=== PATIENT | male | born 1985 | race Caucasian/White ===

== ENCOUNTER 2017-06-11 01:03 | Emergency (ER) | payer SELFPAY ==
[2017-06-11 01:21] VITALS: TEMP 97.7
[2017-06-11] MEDS ORDERED: Aspirin 325 mg EC Tablets PO STA (01:40)
[2017-06-11] MEDS ORDERED: Aspirin 325 mg EC Tablets PO ONE (02:06)
[2017-06-11 03:07] LABS: CHLORIDE 102 mmol/L (98-107)
[2017-06-11 03:08] LABS: POTASSIUM 3.8 mmol/L (3.6-5.2); SODIUM 140 mmol/L (132-148)
[2017-06-11 03:10] LABS: ALB/GLOB RATIO 1.1 (1.0-2.1); CARBON DIOXIDE 28 mmol/L (22-30); CHOLESTEROL 148 mg/dL (0-199); GFR AFRICAN-AMERICAN > 60; TOTAL PROTEIN 8.1 g/dL (6.3-8.3)
--- NOTE | 2017-06-11 03:10 | C.PDOC ---
History Of Present Illness 31 y/o male c/o worsening chest pain for a few hours. Chest pain is described as intermittent, left sided pressure stating "it feels like it's screwing into his chest that moves up and down the left side". Patient notes he has been having chest pain since he was a little kid, but with no diagnosis. Patient does not remember seeing a casing tester. Patient has a questionable hx of HTN and high cholesterol and a pmhx of migraines, kidney stones, and lithotripsy without meds. Patient denies palpitations, SOB, diaphoresis, or abdominal pain. No rash. Time Seen by Provider: 06/11/17 01:28 Chief Complaint (Nursing): Chest Pain History Per: Patient History/Exam Limitations: no limitations Onset/Duration Of Symptoms: Hrs, Intermittent Episodes Current Symptoms Are (Timing): Still Present Severity: Mild Quality: Pressure Recent travel outside of the [place]: No Additional History Per: Patient Past Medical History Reviewed: Historical Data, Nursing Documentation, Vital Signs Vital Signs: Last Vital Signs Temp 97.7 F 06/11/17 01:16 Pulse 89 06/11/17 06:17 Resp 16 06/11/17 06:17 BP 139/86 06/11/17 06:17 Pulse Ox 98 06/11/17 07:14 - Medical History PMH: Anxiety, Asthma ( A CHILD), HTN, Hypercholesterolemia, Migraine Denies: Chronic Kidney Disease - [facility] Procedures INJECT/INFUSE NEC (07/07/14) Family History: States: Unknown Family Hx - Social History Hx Alcohol Use: Yes Hx Substance Use: No Review Of Systems Except As Marked, All Systems Reviewed And Found Negative. Constitutional: Negative for: Sweats Cardiovascular: Positive for: Chest Pain. Negative for: Palpitations, Light Headedness Respiratory: Negative for: Shortness of Breath Gastrointestinal: Negative for: Abdominal Pain Skin: Negative for: Rash Physical Exam - Physical Exam Appears: Non-toxic, No Acute Distress Skin: Warm, Dry, No Rash Head: Atraumatic, Normacephalic Eye(s): bilateral: Normal Inspection Chest: Symmetrical Cardiovascular: Rhythm Regular, No Murmur Respiratory: Normal Breath Sounds, No Rales, No Rhonchi, No Wheezing Gastrointestinal/Abdominal: Soft, No Tenderness Back: No CVA Tenderness Neurological/Psych: Oriented x3 ED Course And Treatment - Laboratory Results Result Diagrams: 06/11/17 02:57 06/11/17 02:57 O2 Sat by Pulse Oximetry: 98 (RA) Pulse Ox Interpretation: Normal Medical Decision Making Medical Decision Making: Plans: * Fentanyl * youth nutritional monitor * Aspirin * Blood labs * IV fluids * EKG * CXR 01:13. EKG: NOrmal sinus 73. J point ST elevation at I, AV l, V2, V3, V4, V5, V6. T wave inversion in a III and AV F. 01:17. Repeat EKG: J Point in V2 resolved. J point elevation at V2, V3, V4, V5, V6. NO T wave inversion lead II, III, and AV F. 06:30. Repeat EKG: normal sinus rate 70. J point elevated in V3, v4, v5, v6. Second troponin in progress. pt asymptomatic. trop neg x 2. ekg seems consistent with pericarditis. pt given naprosyn and clinic follow yup. Disposition Counseled Patient/Family Regarding: Studies Performed, Diagnosis, Need For Followup - Disposition Referrals: [facility] [Outside] Disposition: HOME/ ROUTINE Disposition Time: 07:11 Condition: STABLE Additional Instructions: follow up with clinic Prescriptions: Naproxen [Naprosyn] 500 mg PO BID PRN #20 tablet PRN Reason: pain Instructions: Acute Pericarditis (ED), Thoracic Pain (ED) Forms: [facility] (Monegasque), Work Excuse - Clinical Impression Clinical Impression: Chest pain, Pleuritic pain, Chest discomfort, Chest pain, Pericarditis - Scribe Statement The provider has reviewed the documentation as recorded by the Deejay[place]u sheriff All medical record entries made by the Deejayibvenu were at my direction and personally dictated by me. I have reviewed the chart and agree that the record accurately reflects my personal performance of the history, physical exam, medical decision making, and the department course for this patient. I have also personally directed, reviewed, and agree with the discharge instructions and disposition.
[2017-06-11 03:11] LABS: ALKALINE PHOSPHATASE 96 U/L (38-126); ALT/SGPT 81 U/L (21-72); AST/SGOT 36 U/L (17-59); BILIRUBIN,TOTAL 0.4 mg/dL (0.2-1.3); BLOOD UREA NITROGEN 13 mg/dL (9-20); CALCIUM 9.5 mg/dl (8.6-10.4); GLUCOSE,RANDOM 80 mg/dL (75-110)
[2017-06-11 03:12] LABS: BASO # 0.1 K/uL (0.0-0.2); BASO % 0.8 % (0.0-2.0); EOS # 0.2 K/uL (0.0-0.7); EOS % 2.4 % (0.0-4.0); HEMATOCRIT 45.7 % (35.0-51.0); LYMPH # 2.8 K/uL (1.0-4.3); LYMPH % 33.6 % (20.0-40.0); MEAN CELL VOLUME 86.8 fL (80.0-94.0); MEAN CORPUSCULAR HEMOGLOBIN 29.4 pg (27.0-31.0); MEAN CORPUSCULAR HGB CONC 33.8 g/dL (33.0-37.0); MEAN PLATELET VOLUME 10.9 fL (7.2-11.7); MONO # 0.7 K/uL (0.0-0.8); MONO % 8.4 % (0.0-10.0); RED CELL DISTRIBUTION WIDTH 13.9 % (11.5-14.5); WHITE BLOOD COUNT 8.3 K/uL (4.8-10.8)
[2017-06-11 03:56] VITALS: RESP 16
[2017-06-11 03:57] VITALS: O2SAT 98
[2017-06-11 06:18] VITALS: PULSE 89
[2017-06-11 07:15] VITALS: BP 139/86
--- NOTE | 2017-06-11 08:44 | RAD ---
HISTORY: chest pain COMPARISON: No prior. TECHNIQUE: Chest PA and lateral FINDINGS: LUNGS: No active pulmonary disease. PLEURA: No significant pleural effusion identified. No pneumothorax apparent. CARDIOVASCULAR: Normal. OSSEOUS STRUCTURES: No significant abnormalities. VISUALIZED UPPER ABDOMEN: Normal. OTHER FINDINGS: None. IMPRESSION: No active disease.
== END 2017-06-11 07:24 | disposition home or self-care (01) ==
LOC: C.ER 01:03
DX: R07.9 Chest pain, unspecified (principal); R07.81 Pleurodynia
CPT/HCPCS: 71020; 80053; 80061; 83880; 84484; 85025; 99285; J3010